=== PATIENT | female | born 1960 | race Caucasian/White ===

== ENCOUNTER 2018-04-26 13:10 | Inpatient (IN) | payer OTHER ==
[~2018-04-26] VITALS: Ht 154.9 cm; Wt 61.2 kg
[2018-04-26] MEDS ORDERED: LOSARTAN-HCTZ1 EACH PO (13:49)
[2018-04-26] MEDS ORDERED: NEURONTIN300 MG PO (13:50)
[2018-04-26] MEDS ORDERED: ZYRTEC10 MG PO (13:50)
[2018-04-26] MEDS ORDERED: PEPCID40 MG PO (13:51)
[2018-04-26] MEDS ORDERED: CARAFATE1 GM PO (13:51)
[2018-04-26] MEDS ORDERED: ZOLOFT100 MG PO (13:51)
== END 2018-04-30 11:40 | disposition home or self-care (01) | DRG 472 ==
LOC: O/R 04-29 05:21 → PED 04-29 05:21 → SURH 04-29 07:30 → PED 04-29 14:22
PROVIDERS: Orthopaedic Surgery
PROC: 0RT30ZZ Resection of Cervical Vertebral Disc, Open Approach (ICD-10-PCS; 2018-04-29)
PROC: 3E0F7GC Introduction of Other Therapeutic Substance into Respiratory Tract, Via Natural or Artificial Opening (ICD-10-PCS; 2018-04-29)
PROC: 0RG20A0 Fusion of 2 or more Cervical Vertebral Joints with Interbody Fusion Device, Anterior Approach, Anterior Column, Open Approach (ICD-10-PCS; principal; 2018-04-29 13:15)
DX: M48.02 Spinal stenosis, cervical region (principal); M50.023 Cervical disc disorder at C6-C7 level with myelopathy; M50.323 Other cervical disc degeneration at C6-C7 level; I11.9 Hypertensive heart disease without heart failure; J45.20 Mild intermittent asthma, uncomplicated; K58.8 Other irritable bowel syndrome; E78.00 Pure hypercholesterolemia, unspecified; F32.9 Major depressive disorder, single episode, unspecified; F41.8 Other specified anxiety disorders; L30.8 Other specified dermatitis; M79.7 Fibromyalgia